=== PATIENT | male | born 1980 | race Caucasian/White ===

== ENCOUNTER 2019-12-23 06:41 | Day surgery (SDC) | payer BC ==
[~2019-12-23 06:41] MED LIST: Lactated Ringers 1,000 ML IV SCH; ceFAZolin 2 GM in Premix Bag 1 BAG IV SCH
--- NOTE | 2019-12-23 07:08 | PCM.PREANE ---
Preanesthetic Assessment - Anesthesia/Transfusion/Family Hx Anesthesia History: Prior Anesthesia Without Reaction Family History of Anesthesia Reaction: No Transfusion History: No Prior Transfusion(s) Intubation History: Unknown - Review of Systems General: No Symptoms Pulmonary: No Symptoms Cardiovascular: No Symptoms Gastrointestinal: No Symptoms Neurological: No Symptoms Other: Reports: None - Physical Assessment Height: 6 ft 5 in Weight: 118.388 kg ASA Class: 2 Mental Status: Alert & Oriented x3 Airway Class: Mallampati = 2 Dentition: Reports: Normal Dentition Thyro-Mental Finger Breadths: 3 Mouth Opening Finger Breadths: 3 ROM/Head Extension: Full Lungs: Clear to Auscultation, Normal Respiratory Effort Cardiovascular: Regular Rate, Regular Rhythm - Allergies Allergies/Adverse Reactions: Allergies Allergy/AdvReac Type Severity Reaction Status Date / Time No Known Allergies Allergy Verified 12/22/19 07:17 - Blood Blood Available: No - Anesthesia Plan Pre-Op Medication Ordered: None - Acknowledgements Anesthesia Type Planned: General Anesthesia Pt an Appropriate Candidate for the Planned Anesthesia: Yes Alternatives and Risks of Anesthesia Discussed w Pt/Guardian: Yes Pt/Guardian Understands and Agrees with Anesthesia Plan: Yes PreAnesthesia Questionnaire - Past Health History Medical/Surgical History: Denies Medical/Surgical History HEENT History: Reports: None Cardiovascular History: Reports: Other (See Below) Other Cardiovascular History: was told he had a murmur as a child Respiratory History: Reports: Other (See Below) Other Respiratory History: thinks he may have sleep apnea, not diagnosed Gastrointestinal History: Reports: Other (See Below) Other Gastrointestinal History: occasional heartburn relieved with tums Genitourinary History: Reports: Renal Calculus Musculoskeletal History: Reports: None Neurological History: Reports: None Psychiatric History: Reports: None Endocrine/Metabolic History: Reports: Obesity/BMI 30+ (BMI 30.9) Hematologic History: Reports: None Immunologic History: Reports: None Oncologic (Cancer) History: Reports: None Dermatologic History: Reports: None - Past Surgical History Head Surgeries/Procedures: Reports: None HEENT Surgical History: Reports: None Cardiovascular Surgical History: Reports: None Respiratory Surgical History: Reports: None GI Surgical History: Reports: None Male Surgical History: Reports: Lithotripsy (ESWL), Vasectomy Endocrine Surgical History: Reports: None Neurological Surgical History: Reports: None Musculoskeletal Surgical History: Reports: None Oncologic Surgical History: Reports: None Dermatological Surgical History: Reports: None - SUBSTANCE USE Tobacco Use Within Last Twelve Months: Smokeless Tobacco - HOME MEDS Home Medications: Home Meds Calcium Carbonate [Tums] 1 tab.chew CHEW ASDIRECTED PRN 12/22/19 [History] - CURRENT (IN HOUSE) MEDS Current Meds: Current Medications Cefazolin Sodium/Dextrose 2 gm (/ Premix) 50 mls @ 100 mls/hr IV ONETIME SUNIL Lactated Ringer's (Ringers, Lactated) 1,000 mls @ 125 mls/hr IV ASDIRECTED SUNIL
[2019-12-23] MEDS ORDERED: ceFAZolin 1 GM Vial ONE ×2 (07:09→08:15)
[2019-12-23] MEDS ORDERED: Bupivacaine 0.5% 10 ML SDV ONE (07:10)
[2019-12-23] MEDS ORDERED: Lidocaine 2% 5 ML SDV ONE (07:39)
[2019-12-23] MEDS ORDERED: fentaNYL 100 MCG/2 ML SDV ONE ×3 (07:39→08:58)
[2019-12-23] MEDS ORDERED: Midazolam 1 MG/ML 2 ML SDV ONE (07:39)
[2019-12-23] MEDS ORDERED: Propofol 200 MG/20 ML SDV ONE (07:39)
[2019-12-23] MEDS ORDERED: Ketorolac 30 MG/ML SDV ONE (08:33)
[2019-12-23] MEDS ORDERED: Ondansetron 4 MG/2 ML SDV ONE (08:33)
[2019-12-23] MEDS ORDERED: Glycopyrrolate 0.2 MG/ML SDV ONE (08:35)
[2019-12-23] MEDS ORDERED: fentaNYL 100 MCG/2 ML SDV IVPUSH PRN (08:38)
[2019-12-23] MEDS ORDERED: Acetaminophen/HYDROcodone 325-5 MG Tab PO PRN (09:15)
[2019-12-23] MEDS ORDERED: Lactated Ringers 1,000 ML IV SCH (09:15)
[2019-12-23] MEDS ORDERED: Ondansetron 4 MG/2 ML SDV IVPUSH PRN (09:15)
[2019-12-23] MEDS ORDERED: Morphine 10 MG/ML Syringe IVPUSH PRN (09:15)
--- NOTE | 2019-12-23 09:17 | PCM.OPNOTE ---
- General Post-Op/Procedure Note Date of Surgery/Procedure: 12/23/19 Operative Procedure(s): Repair incarcerated umbilical hernia with 4.3 cm Ventralex mesh Pre Op Diagnosis: Incarcerated umbilical hernia Post-Op Diagnosis: Same Anesthesia Technique: General ET Tube (ASA II) Primary Surgeon: Telly Lynch Fluid Replacement, Intraop: 800 EBL in mLs: 5 Condition: Good Free Text/Narrative:: DICTATION [id number] CPT CODE 81269/52058
[2019-12-23] MEDS ORDERED: Acetaminophen 1,000 MG in Premix Bag 1 BAG IV PRN (09:29)
--- NOTE | 2019-12-23 10:32 | PCM.POSTAN ---
POST ANESTHESIA ASSESSMENT - MENTAL STATUS Mental Status: Alert, Oriented - VITAL SIGNS Vital Signs: Last Vital Signs Temp 36.6 C 12/23/19 09:16 Pulse 58 L 12/23/19 09:57 Resp 12 12/23/19 09:57 BP 130/69 12/23/19 09:57 Pulse Ox 94 L 12/23/19 09:57 - RESPIRATORY Respiratory Status: Respiratory Rate WNL, Airway Patent, O2 Saturation Stable - CARDIOVASCULAR CV Status: Pulse Rate WNL, Blood Pressure Stable - GASTROINTESTINAL GI Status: No Symptoms - PAIN Pain Score: 3 - POST OP HYDRATION Hydration Status: Adequate & Stable - OBSERVATIONS Free Text/Narrative:: No anesthesia problems
--- NOTE | 2019-12-23 10:44 | OR ---
SURGEON: Telly Lynch M.D. DATE OF PROCEDURE: 12/23/2019 OPERATION PERFORMED: Repair of incarcerated umbilical hernia with 4.3 cm Ventralex mesh. PRIMARY SURGEON: Telly Lynch M.D. ANESTHESIA: General endotracheal. ASA CLASSIFICATION: II. PREOPERATIVE DIAGNOSIS: Incarcerated umbilical hernia. POSTOPERATIVE DIAGNOSIS: Incarcerated umbilical hernia. ESTIMATED BLOOD LOSS: 5 mL. INTRAOPERATIVE FLUID REPLACEMENT: 800 mL of crystalloid. DESCRIPTION OF PROCEDURE: The patient was taken to the operating room, placed on the operating table in the supine position. Time-out was called for appropriate identification of patient and procedure. Thigh-high TEDs and sequential compression boots were placed. Following satisfactory attainment of general endotracheal anesthesia, the abdomen was prepped with DuraPrep solution. Sterile drapes were applied. Skin incision was marked out in an infraumbilical fashion. The skin was infiltrated with 10 mL of 0.5% Marcaine solution. Skin incision was then made and deepened into the subcutaneous tissue. The hernia sac was identified and dissected away from the surrounding tissues and was reduced. The defect was approximately 2.5 cm in diameter. A 4.3 cm Ventralex mesh was brought to the operating table. This was soaked in 1% Ancef solution. Then, placed in an underlay position. This was secured with multiple interrupted horizontal mattress 0 Ethibond sutures. Each suture was placed under direct vision and held with hemostats until last suture had been placed. These sutures were then tied down. The patient was given a Valsalva maneuver to 40 cm of water and the repair was solid. No wrinkles were noted in the Ventralex mesh. The fascia over the mesh was then reapproximated with interrupted 0 Ethibond. Subcutaneous tissue was closed with 3-0 Vicryl in a running fashion. Skin edges were reapproximated with subcuticular 4-0 Monocryl. The incision was steri-stripped and dressed with a sterile Tegaderm pad. Sponge, needle, and instrument counts were all correct. Following emergence from anesthesia and extubation, the patient was taken to recovery room in stable condition. LUCY / MILKA /[id number]
--- NOTE | 2019-12-23 12:08 | PCM48HPAN ---
Post Anesthesia Note - EVALUATION WITHIN 48HRS OF ANESTHETIC Vital Signs in Normal Range: Yes Patient Participated in Evaluation: Yes Respiratory Function Stable: Yes Airway Patent: Yes Cardiovascular Function Stable: Yes Hydration Status Stable: Yes Pain Control Satisfactory: Yes Nausea and Vomiting Control Satisfactory: Yes Mental Status Recovered: Yes Vital Signs: Last Vital Signs Temp 36.6 C 12/23/19 09:16 Pulse 58 L 12/23/19 09:57 Resp 12 12/23/19 09:57 BP 130/69 12/23/19 09:57 Pulse Ox 94 L 12/23/19 09:57 - COMMENTS/OBSERVATIONS Free Text/Narrative:: Discussed possible sleep apnea with patient in presence of . Recommended he be evaluated as excess tissue observed in pharynx during intubation. Also observed excessive sonorous breathing post operatively.
[2019-12-23 13:23] VITALS: BP 133/75; PULSE 54
== END 2019-12-23 12:50 | disposition home or self-care (01) ==
LOC: MW.SDS 06:41
PROVIDERS: ATTEND Surgery
DX: K42.0 Umbilical hernia with obstruction, without gangrene (principal); F17.200 Nicotine dependence, unspecified, uncomplicated; E66.9 Obesity, unspecified; Z86.79 Personal history of other diseases of the circulatory system; Z98.52 Vasectomy status; Z68.30 Body mass index [BMI] 30.0-30.9, adult
CPT/HCPCS: 49587; A9270; C1781; J0131; J0690; J1885; J2001; J2250; J2405; J2704; J3010; J3490; J7120

== ENCOUNTER 2020-02-24 06:43 | Day surgery (SDC) | payer BC ==
[2020-02-24] MEDS ORDERED: Lidocaine 2% 5 ML SDV ONE (07:16)
--- NOTE | 2020-02-24 07:16 | PCM.PREANE ---
Preanesthetic Assessment - Anesthesia/Transfusion/Family Hx Anesthesia History: Prior Anesthesia Without Reaction Family History of Anesthesia Reaction: No Transfusion History: No Prior Transfusion(s) Intubation History: Unknown - Review of Systems General: No Symptoms Pulmonary: No Symptoms Cardiovascular: No Symptoms Gastrointestinal: No Symptoms Neurological: No Symptoms Other: Reports: None - Physical Assessment Vital Signs: Last Vital Signs Temp 35.9 C L 02/24/20 06:57 Pulse 75 02/24/20 06:57 Resp 16 02/24/20 06:57 BP 131/80 02/24/20 06:57 Pulse Ox 96 02/24/20 06:57 Height: 6 ft 5 in Weight: 111.13 kg ASA Class: 2 Mental Status: Alert & Oriented x3 Airway Class: Mallampati = 2 Dentition: Reports: Normal Dentition Thyro-Mental Finger Breadths: 3 Mouth Opening Finger Breadths: 3 ROM/Head Extension: Full Lungs: Clear to Auscultation, Normal Respiratory Effort Cardiovascular: Regular Rate, Regular Rhythm - Allergies Allergies/Adverse Reactions: Allergies Allergy/AdvReac Type Severity Reaction Status Date / Time No Known Allergies Allergy Verified 02/21/20 12:43 - Blood Blood Available: No - Anesthesia Plan Pre-Op Medication Ordered: None - Acknowledgements Anesthesia Type Planned: General Anesthesia Pt an Appropriate Candidate for the Planned Anesthesia: Yes Alternatives and Risks of Anesthesia Discussed w Pt/Guardian: Yes Pt/Guardian Understands and Agrees with Anesthesia Plan: Yes PreAnesthesia Questionnaire - Past Health History Medical/Surgical History: Denies Medical/Surgical History HEENT History: Reports: None Cardiovascular History: Reports: Other (See Below) Other Cardiovascular History: was told he had a murmur as a child Respiratory History: Reports: Other (See Below) Other Respiratory History: thinks he may have sleep apnea, not diagnosed Gastrointestinal History: Reports: None Genitourinary History: Reports: Renal Calculus Musculoskeletal History: Reports: None Neurological History: Reports: None Psychiatric History: Reports: None Endocrine/Metabolic History: Reports: None Hematologic History: Reports: None Immunologic History: Reports: None Oncologic (Cancer) History: Reports: None Dermatologic History: Reports: None - Past Surgical History Head Surgeries/Procedures: Reports: None HEENT Surgical History: Reports: None Cardiovascular Surgical History: Reports: None Respiratory Surgical History: Reports: None GI Surgical History: Reports: Hernia, Abdominal Other GI Surgeries/Procedures: umbilical hernia repair 2 months ago here Male Surgical History: Reports: Lithotripsy (ESWL), Vasectomy (6 months ago) Endocrine Surgical History: Reports: None Neurological Surgical History: Reports: None Musculoskeletal Surgical History: Reports: None Oncologic Surgical History: Reports: None Dermatological Surgical History: Reports: None - SUBSTANCE USE Tobacco Use Within Last Twelve Months: Snuff/Dip - HOME MEDS Home Medications: Home Meds . [No Known Home Meds] 02/21/20 [History] - CURRENT (IN HOUSE) MEDS Current Meds: Current Medications Cefazolin Sodium/Dextrose 2 gm (/ Premix) 50 mls @ 100 mls/hr IV ONETIME SUNIL Lactated Ringer's (Ringers, Lactated) 1,000 mls @ 125 mls/hr IV ASDIRECTED SUNIL
[2020-02-24] MEDS ORDERED: Midazolam 1 MG/ML 2 ML SDV ONE (07:17)
[2020-02-24] MEDS ORDERED: HYDROmorphone 2 MG/ML Syringe ONE (07:17)
[2020-02-24] MEDS ORDERED: Propofol 200 MG/20 ML SDV ONE ×2 (07:17→07:19)
[2020-02-24] MEDS ORDERED: fentaNYL 250 MCG/5 ML SDV ONE (07:18)
[2020-02-24] MEDS ORDERED: ceFAZolin 1 GM Vial ONE (07:19)
[2020-02-24] MEDS ORDERED: Bupivacaine 0.5% 30 ML SDV ONE (07:19)
[2020-02-24] MEDS ORDERED: Ondansetron 4 MG/2 ML SDV ONE (07:25)
[2020-02-24] MEDS ORDERED: Morphine 10 MG/ML Syringe IVPUSH PRN (08:55)
[2020-02-24] MEDS ORDERED: Ondansetron 4 MG/2 ML SDV IVPUSH PRN (08:55)
[2020-02-24] MEDS ORDERED: Acetaminophen/HYDROcodone 325-5 MG Tab PO PRN (08:55)
--- NOTE | 2020-02-24 08:58 | PCM.OPNOTE ---
- General Post-Op/Procedure Note Date of Surgery/Procedure: 02/24/20 Operative Procedure(s): Repair incarcerated supraumbilical ventral hernia Pre Op Diagnosis: Incarcerated supraumbilical ventral hernia Post-Op Diagnosis: Same Anesthesia Technique: General LMA (ASA II) Primary Surgeon: Telly Lynch Fluid Replacement, Intraop: 600 EBL in mLs: 5 Condition: Good Free Text/Narrative:: DICTATION [id number] CPT CODE 02015
[2020-02-24] MEDS ORDERED: Lactated Ringers 1,000 ML IV SCH (09:00)
--- NOTE | 2020-02-24 09:21 | PCM.POSTAN ---
POST ANESTHESIA ASSESSMENT - MENTAL STATUS Mental Status: Alert, Oriented - VITAL SIGNS Vital Signs: Last Vital Signs Temp 36.4 C 02/24/20 08:47 Pulse 60 02/24/20 09:17 Resp 10 L 02/24/20 09:17 BP 125/67 02/24/20 09:17 Pulse Ox 96 02/24/20 09:17 - RESPIRATORY Respiratory Status: Respiratory Rate WNL, Airway Patent, O2 Saturation Stable - CARDIOVASCULAR CV Status: Pulse Rate WNL, Blood Pressure Stable - GASTROINTESTINAL GI Status: No Symptoms - PAIN Pain Score: 2 - POST OP HYDRATION Hydration Status: Adequate & Stable - OBSERVATIONS Free Text/Narrative:: No anesthesia problems.
--- NOTE | 2020-02-24 10:52 | PCM48HPAN ---
Post Anesthesia Note - EVALUATION WITHIN 48HRS OF ANESTHETIC Vital Signs in Normal Range: Yes Patient Participated in Evaluation: Yes Respiratory Function Stable: Yes Airway Patent: Yes Cardiovascular Function Stable: Yes Hydration Status Stable: Yes Pain Control Satisfactory: Yes Nausea and Vomiting Control Satisfactory: Yes Mental Status Recovered: Yes Vital Signs: Last Vital Signs Temp 36.0 C L 02/24/20 09:21 Pulse 52 L 02/24/20 09:51 Resp 14 02/24/20 09:51 BP 126/80 02/24/20 09:51 Pulse Ox 96 02/24/20 09:51 - COMMENTS/OBSERVATIONS Free Text/Narrative:: No anesthesia problems
[2020-02-24 10:53] VITALS: BP 134/78; PULSE 64
--- NOTE | 2020-02-24 15:25 | OR ---
SURGEON: Telly Lynch M.D. DATE OF PROCEDURE: 02/24/2020 OPERATION PERFORMED: Repair of incarcerated supraumbilical ventral hernia. PRIMARY SURGEON: Telly Lynch MD ANESTHESIA: General LMA. ASA CLASSIFICATION: II. PREOPERATIVE DIAGNOSIS: Incarcerated supraumbilical ventral hernia. POSTOPERATIVE DIAGNOSIS: Incarcerated supraumbilical ventral hernia. ESTIMATED BLOOD LOSS: 5 mL. INTRAOPERATIVE FLUID REPLACEMENT: 600 mL of crystalloid. DESCRIPTION OF PROCEDURE: The patient was taken to the operating room and placed on the operating table in the supine position. Time-out was called for appropriate identification of the patient and procedure. Sequential compression boots were placed. Following satisfactory attainment of general anesthesia with placement of an LMA, the abdomen was prepped with DuraPrep solution, sterile drapes were applied. Surgical site had been marked prior to the patient entering the operating room. The skin overlying this was infiltrated with 5 mL of 0.5% Marcaine solution. Skin incision was made and deepened through the subcutaneous tissue, obtaining hemostasis with the use of electrocautery. The hernia sac was identified and was sharply mobilized. Again, bleeding sites were electrocoagulated. Once the hernia sac had been mobilized and the fascial defect identified, the hernia sac was able to be reduced. The fascial defect was then repaired with multiple interrupted 0 Ethibond sutures. All sutures were placed under direct vision and held with hemostats until the final suture had been placed. Sutures were then tied down. The patient was given a Valsalva maneuver to approximately 30 cm of water and the repair was solid. Sutures were trimmed to appropriate length. Wound was irrigated with sterile saline solution. Subcutaneous tissue was closed with running 3-0 Vicryl and the skin edges reapproximated with subcuticular 4-0 Monocryl. The incision was then steri-stripped and dressed with a sterile Tegaderm pad. Sponge, needle, and instrument counts were all correct. Following emergence from anesthesia and extubation, the patient was taken to recovery room in satisfactory condition. LUCY / MILKA /[id number]
== END 2020-02-24 10:55 | disposition home or self-care (01) ==
LOC: MW.SDS 06:43
PROVIDERS: ATTEND Surgery
DX: K43.6 Other and unspecified ventral hernia with obstruction, without gangrene (principal)
CPT/HCPCS: 49561; J0690; J1170; J2001; J2250; J2405; J2704; J3010; J3490; J7120; 00790